=== PATIENT | female | born 1930 | race Native Hawaiian/Other Pacific Islander ===

== ENCOUNTER 2017-04-25 15:45 | Emergency (ER) | payer MEDICARE, MEDICAID ==
[~2017-04-25] VITALS: Ht 157.5 cm; Wt 70.5 kg
[2017-04-25] MEDS ORDERED: AMLO2.5T PO (15:59)
[2017-04-25] MEDS ORDERED: VALS40TA4 PO (15:59)
[2017-04-25] MEDS ORDERED: ATOR10TA84 PO (15:59)
[2017-04-25] MEDS ORDERED: RANI150T7 PO (15:59)
[2017-04-25] MEDS ORDERED: ISOS5TAB5 PO (15:59)
[2017-04-25] MEDS ORDERED: ASPI-556 PO (15:59)
[2017-04-25] MEDS ORDERED: RANI50VI4 IM (15:59)
[2017-04-25 20:50] VITALS: BP 145/77
[2017-04-25 21:54] LABS: ALBUMIN 3.2 g/dL (3.4-5.0); BASOPHILS % (AUTO) 0.5 % (0.0-2.0); BILIRUBIN,TOTAL 0.4 mg/dL (0.1-1.0); CALCIUM, TOTAL 9.2 mg/dL (8.8-10.5); CREATININE 1.15 mg/dL (0.60-1.30); EOSINOPHILS % (AUTO) 0.4 % (1.0-6.0); HEMATOCRIT 38.4 % (36-46); HEMOGLOBIN 12.7 g/dL (12.0-16.0); LYMPHOCYTES # (AUTO) 1.7 K/uL (1.0-4.8); LYMPHOCYTES % (AUTO) 46.5 % (22.0-44.0); MEAN CORPUSCULAR HEMOGLOBIN 29.8 pg (26.0-34.0); MEAN CORPUSCULAR HGB CONC 33.1 G/dL (31.0-37.0); MEAN CORPUSCULAR VOLUME 90 fL (80-100); MONOCYTES # (AUTO) 0.7 K/uL (0.1-1.0); NEUTROPHILS # (AUTO) 1.3 K/uL (1.8-7.7); NEUTROPHILS % (AUTO) 34.6 % (40.0-70.0); PLATELET COUNT (AUTO) 243 K/uL (150-450); RED BLOOD CELL COUNT(AUTO) 4.26 MIL/uL (4.00-5.20); RED CELL DISTRIBUTION WIDTH 13.2 % (11.5-14.5); TOTAL PROTEIN, SERUM 8.2 g/dL (6.4-8.2)
== END 2017-04-25 22:01 | disposition home or self-care (01) ==
LOC: EMS 15:46
DX: R07.2 Precordial pain (principal); R05 Cough; R11.10 Vomiting, unspecified; R09.81 Nasal congestion; K21.9 Gastro-esophageal reflux disease without esophagitis; E78.00 Pure hypercholesterolemia, unspecified; I10 Essential (primary) hypertension; Z79.82 Long term (current) use of aspirin
CPT/HCPCS: 71020; 93005; 99285

== ENCOUNTER → 2018-01-29 | Outpatient (CLI) | payer MEDICARE, OTHER ==
[~2018-01-29] MED LIST: AMLO2.5T3 PO; ASPI-556 PO; ATOR10TA84 PO; ISOS5TAB5 PO; RANI150T7 PO; RANI50VI4 IM; VALS40TA4 PO
[2018-01-29 12:54] LABS: BASOPHILS % (AUTO) 0.8 % (0.0-2.0); EOSINOPHILS % (AUTO) 3.4 % (1.0-6.0); HEMATOCRIT 36.8 % (36-46); HEMOGLOBIN 12.5 g/dL (12.0-16.0); LYMPHOCYTES # (AUTO) 2.5 K/uL (1.0-4.8); LYMPHOCYTES % (AUTO) 33.4 % (22.0-44.0); MEAN CORPUSCULAR HEMOGLOBIN 31.1 pg (26.0-34.0); MEAN CORPUSCULAR HGB CONC 33.9 G/dL (31.0-37.0); MEAN CORPUSCULAR VOLUME 92 fL (80-100); MONOCYTES # (AUTO) 0.8 K/uL (0.1-1.0); NEUTROPHILS # (AUTO) 3.8 K/uL (1.8-7.7); NEUTROPHILS % (AUTO) 51.4 % (40.0-70.0); PLATELET COUNT (AUTO) 269 K/uL (150-450); RED BLOOD CELL COUNT(AUTO) 4.01 MIL/uL (4.00-5.20); RED CELL DISTRIBUTION WIDTH 13.4 % (11.5-14.5)
[2018-01-29 13:20] LABS: ALBUMIN 3.6 g/dL (3.4-5.0); BILIRUBIN,TOTAL 0.6 mg/dL (0.1-1.0); CALCIUM, TOTAL 9.5 mg/dL (8.8-10.5); CHOL/HDL RATIO 1.9 (3.9-5.7); CREATININE 1.36 mg/dL (0.60-1.30); POTASSIUM 4.4 mmol/L (3.5-5.1); THYROID STIMULATING HORMONE 2.33 uIU/mL (0.36-3.74); TOTAL PROTEIN, SERUM 8.7 g/dL (6.4-8.2)
[2018-01-29 13:40] LABS: HEMOGLOBIN A1C 5.7 % (4.5-6.2)
== END | disposition home or self-care (01) ==
LOC: LABPV 10:55
PROVIDERS: ATTEND Internal Medicine Infectious Disease
DX: I25.10 Atherosclerotic heart disease of native coronary artery without angina pectoris (principal); I10 Essential (primary) hypertension; E78.2 Mixed hyperlipidemia; Z79.899 Other long term (current) drug therapy
CPT/HCPCS: 83036; 84443

== ENCOUNTER → 2018-04-06 | Outpatient (CLI) | payer MEDICARE, OTHER ==
[2018-04-06 15:11] LABS: EOSINOPHILS % (AUTO) 1.9 % (1.0-6.0); HEMATOCRIT 37.7 % (36-46); HEMOGLOBIN 12.7 g/dL (12.0-16.0); LYMPHOCYTES % (AUTO) 30.9 % (22.0-44.0); MEAN CORPUSCULAR HEMOGLOBIN 31.2 pg (26.0-34.0); MEAN CORPUSCULAR HGB CONC 33.6 G/dL (31.0-37.0); MEAN CORPUSCULAR VOLUME 93 fL (80-100); MONOCYTES # (AUTO) 0.7 K/uL (0.1-1.0); MONOCYTES % (AUTO) 10.1 % (2.0-9.0); NEUTROPHILS # (AUTO) 3.6 K/uL (1.8-7.7); NEUTROPHILS % (AUTO) 56.1 % (40.0-70.0); PLATELET COUNT (AUTO) 309 K/uL (150-450); RED BLOOD CELL COUNT(AUTO) 4.05 MIL/uL (4.00-5.20); RED CELL DISTRIBUTION WIDTH 13.5 % (11.5-14.5)
[2018-04-06 15:28] LABS: ALBUMIN 3.8 g/dL (3.4-5.0); BILIRUBIN,TOTAL 0.5 mg/dL (0.1-1.0); CALCIUM, TOTAL 8.9 mg/dL (8.8-10.5); CHOL/HDL RATIO 1.9 (3.9-5.7); CREATININE 1.37 mg/dL (0.60-1.30); POTASSIUM 4.2 mmol/L (3.5-5.1); THYROID STIMULATING HORMONE 4.48 uIU/mL (0.36-3.74); TOTAL PROTEIN, SERUM 8.7 g/dL (6.4-8.2)
== END | disposition home or self-care (01) ==
LOC: LABPV 13:13
PROVIDERS: ATTEND Internal Medicine Infectious Disease
DX: E78.2 Mixed hyperlipidemia (principal); I11.0 Hypertensive heart disease with heart failure; I50.21 Acute systolic (congestive) heart failure; R60.0 Localized edema; Z79.899 Other long term (current) drug therapy
CPT/HCPCS: 83036; 84443

== ENCOUNTER → 2018-06-30 | Outpatient (CLI) | payer MEDICARE, OTHER ==
[~2018-06-30] MED LIST changes: -AMLO2.5T3 PO; +AMLO2.5T4 PO
[2018-06-30 08:25] LABS: FREE THYROXINE INDEX 2.9 (1.4-4.5); THYROID STIMULATING HORMONE 5.66 uIU/mL (0.36-3.74)
== END | disposition home or self-care (01) ==
LOC: LABPV 06-29 10:48
PROVIDERS: ATTEND Internal Medicine Infectious Disease
DX: R73.09 Other abnormal glucose (principal); R79.89 Other specified abnormal findings of blood chemistry; I13.0 Hypertensive heart and chronic kidney disease with heart failure and stage 1 through stage 4 chronic kidney disease, or unspecified chronic kidney disease; N18.9 Chronic kidney disease, unspecified; I50.9 Heart failure, unspecified
CPT/HCPCS: 82951; 82952; 84436; 84443; 84479

== ENCOUNTER 2019-07-03 11:14 | Inpatient (IN) | payer MEDICARE, OTHER ==
[~2019-07-03] VITALS: Ht 157.5 cm; Wt 73.2 kg
[2019-07-03] MEDS ORDERED: HYDR25TA PO (11:58)
[2019-07-03] MEDS ORDERED: AMLO10TA7 PO (11:58)
[2019-07-03] MEDS ORDERED: ATOR40TA28 PO (11:58)
[2019-07-03] MEDS ORDERED: ISOS30TA6 PO (11:58)
[2019-07-03] MEDS: SODIUM CHLORIDE 0.9% 1,000 ML IV ONE (12:10)
[2019-07-03 12:12] LABS: GLUCOSE,POINT OF CARE 167 MG/DL (70-110)
[2019-07-03 12:22] LABS: BASOPHILS % (AUTO) 0.4 % (0.0-2.0); EOSINOPHILS % (AUTO) 0.2 % (1.0-6.0); HEMATOCRIT 39.1 % (36-46); LYMPHOCYTES # (AUTO) 1.1 K/uL (1.0-4.8); LYMPHOCYTES % (AUTO) 19.1 % (22.0-44.0); MEAN CORPUSCULAR HEMOGLOBIN 30.4 pg (26.0-34.0); MEAN CORPUSCULAR HGB CONC 35.7 G/dL (31.0-37.0); MEAN CORPUSCULAR VOLUME 85 fL (80-100); MONOCYTES # (AUTO) 0.5 K/uL (0.1-1.0); MONOCYTES % (AUTO) 9.1 % (2.0-9.0); NEUTROPHILS # (AUTO) 4.1 K/uL (1.8-7.7); NEUTROPHILS % (AUTO) 71.2 % (40.0-70.0); PLATELET COUNT (AUTO) 346 K/uL (150-450); RED BLOOD CELL COUNT(AUTO) 4.59 MIL/uL (4.00-5.20)
[2019-07-03 12:39] LABS: B-TYPE NATRIURETIC PEPTIDE 166 pg/mL (0-100)
[2019-07-03 12:45] LABS: LACTIC ACID 1.2 mmol/L (0.4-2.0)
[2019-07-03 12:54] LABS: ALANINE AMINOTRANSFERASE 38 U/L (12-78); ALBUMIN 3.9 g/dL (3.4-5.0); ALKALINE PHOSPHATASE 69 U/L (46-116); ANION GAP 2 mmol/L (8-16); ASPARTATE AMINOTRANSFERASE 41 U/L (15-37); BILIRUBIN,TOTAL 0.9 mg/dL (0.1-1.0); CALCIUM, TOTAL 9.6 mg/dL (8.8-10.5); CARBON DIOXIDE 36 mmol/L (22-29); CHLORIDE 72 mmol/L (98-107); CREATINE KINASE, TOTAL ONLY 370 U/L (26-192); GLOMERULAR FILTR. RATE CALC 59 mL/min (>60); GLUCOSE,RANDOM 137 mg/dL (70-110); TOTAL PROTEIN, SERUM 9.2 g/dL (6.4-8.2); UREA NITROGEN, BLOOD 12 mg/dL (7-18)
[2019-07-03 12:57] LABS: POTASSIUM 2.2 mmol/L (3.5-5.1); SODIUM SERUM 110 mmol/L (136-145)
[2019-07-03] MEDS ORDERED: MAGNESIUM SULFATE 1 GM in DEXTROSE 5%-WATER 50 ML IV ONE (13:00)
[2019-07-03 13:03] LABS: INFLUENZA TYPE A NEGATIVE FOR TYPE A (NEGATIVE); INFLUENZA TYPE B NEGATIVE FOR TYPE B (NEGATIVE)
[2019-07-03 13:04] LABS: SALICYLATE < 0.2 mg/dL (2.8-20.0)
[2019-07-03] MEDS: POTASSIUM CHL 10 MEQ/WATER 50 ML IV PRN ×5 (13:15→21:40)
[2019-07-03] MEDS ORDERED: SODIUM CHLORIDE 0.9% 500 ML IV ONE (13:16)
[2019-07-03 13:18] LABS: ACETAMINOPHEN < 2 mcg/mL (10-30); FREE T4 (FREE THYROXINE) 1.61 ng/dL (0.76-1.46); THYROID STIMULATING HORMONE 3.38 uIU/mL (0.36-3.74)
[2019-07-03] MEDS: POTASSIUM CHLORIDE 20 MEQ ER TABLET PO PRN ×2 (13:30→18:09)
[2019-07-03 13:34] LABS: OSMOLALITY 234 mOS/kg (270-310)
[2019-07-03 13:47] LABS: OSMOLALITY,URINE 361 mOS/kg (50-1200)
[2019-07-03 13:48] LABS: SODIUM,URINE RANDOM 92 mmol/l (20-110)
[2019-07-03 14:03] LABS: ANION GAP 4 mmol/L (8-16); CALCIUM, TOTAL 9.2 mg/dL (8.8-10.5); CARBON DIOXIDE 29 mmol/L (22-29); CHLORIDE 71 mmol/L (98-107); CREATININE 0.58 mg/dL (0.60-1.30); GLUCOSE,RANDOM 139 mg/dL (70-110); POTASSIUM 3.4 mmol/L (3.5-5.1); UREA NITROGEN, BLOOD 10 mg/dL (7-18)
[2019-07-03 14:11] LABS: GLOMERULAR FILTR. RATE CALC > 60 mL/min (>60); SODIUM SERUM 104 mmol/L (136-145)
[2019-07-03] MEDS ORDERED: SODIUM CHLORIDE 3% 500 ML IV ONE (14:15)
[2019-07-03] MEDS ORDERED: ONDANSETRON HCL 4 MG/2 ML VIAL IVP PRN ×2 (14:15→17:45)
[2019-07-03] MEDS ORDERED: ACETAMINOPHEN 325 MG TABLET PO PRN ×2 (14:15→17:45)
[2019-07-03] MEDS ORDERED: 0.9% SODIUM CHLORIDE 10 ML SYRINGE IVP PRN (14:15)
[2019-07-03 14:22] LABS: APPEARANCE,URINE CLOUDY (CLEAR); BILIRUBIN,URINE NEGATIVE (NEGATIVE); GLUCOSE, URINE (UA) NEGATIVE (NEGATIVE); KETONES,URINE NEGATIVE (NEGATIVE); LEUKOCYTE ESTERASE ,URINE NEGATIVE (NEGATIVE); NITRATE,URINE NEGATIVE (NEGATIVE); OCCULT BLOOD,URINE SMALL (NEGATIVE); PROTEIN,URINE SEE CONFIRM (NEGATIVE); UROBILINOGEN,URINE 0.2 mg/dL (<=1.0)
[2019-07-03 14:44] LABS: SULFOSALICYLIC ACID,URINE 2+ (Negative)
[2019-07-03 14:45] LABS: BACTERIA,URINE Many /HPF (None Seen); RBC,URINE 0-2 /HPF (0-2); SQUAMOUS EPITHELIAL CELL,UR Few /LPF (None Seen); WBC,URINE 0-2 /HPF (0-5)
[2019-07-03] MEDS ORDERED: PANTOPRAZOLE SODIUM 40 MG/VIAL IVP ONE (15:45)
[2019-07-03] MEDS ORDERED: ALPRAZolam 0.25 MG TABLET PO ONE (15:45)
[2019-07-03 17:24] LABS: POTASSIUM 2.3 mmol/L (3.5-5.1)
[2019-07-03] MEDS ORDERED: POTASSIUM CHL 10 MEQ/WATER 50 ML IV PRN (17:45)
[2019-07-03] MEDS ORDERED: BISACODYL 10 MG RECTAL RECTAL SUPPOSITORY PR PRN (17:45)
[2019-07-03] MEDS ORDERED: MORPHINE SULFATE 2 MG/ML SYRINGE IVP PRN (17:45)
[2019-07-03] MEDS ORDERED: HYDROCODONE/ACETAMINOPHEN 5-325 MG TABLET PO PRN (17:45)
[2019-07-03] MEDS ORDERED: HydrALAZINE HCL 10 MG TABLET PO PRN (17:45)
[2019-07-03] MEDS ORDERED: MAGNESIUM HYDROXIDE SUSPENSION 30 ML UDCUP PO PRN (17:45)
[2019-07-03] MEDS ORDERED: ZOLPIDEM TARTRATE 5 MG TABLET PO PRN (17:45)
[2019-07-03 19:49] LABS: POTASSIUM 3.3 mmol/L (3.5-5.1)
[2019-07-03] MEDS: DOCUSATE SODIUM 100 MG CAPSULE PO SCH (20:27)
[2019-07-03 21:30] LABS: POTASSIUM 4.3 mmol/L (3.5-5.1)
[2019-07-03 23:27] LABS: POTASSIUM 4.3 mmol/L (3.5-5.1)
[2019-07-04] VITALS: BP_SYST 118; BP_DIAS 40; BP_DIAS 44
[2019-07-04] MEDS: HEPARIN SODIUM,PORCINE 5,000 UNITS/ML VIAL SQ SCH ×4 (00:19→23:40)
[2019-07-04 01:53] LABS: POTASSIUM 4.1 mmol/L (3.5-5.1)
[2019-07-04] MEDS ORDERED: PNEUMOCOCCAL VACCINE POLYVALENT 0.5 ML VIAL [PPSV23] IM ONE (02:00)
[2019-07-04] MEDS ORDERED: INFLUENZA VIRUS VACCINE QVS 2019-20 (3YR+)/PF 60 MCG/0.5 ML SYRINGE IM ONE (02:00)
[2019-07-04] MEDS: SODIUM CHLORIDE 3% 500 ML IV SCH ×2 (03:48→16:36)
[2019-07-04 04:00] VITALS: BP 108/41
[2019-07-04 05:46] LABS: POTASSIUM 3.8 mmol/L (3.5-5.1)
[2019-07-04 08:00] VITALS: BP 128/40
[2019-07-04] MEDS ORDERED: ATORVASTATIN CALCIUM 40 MG TABLET PO SCH (09:00)
[2019-07-04 09:06] LABS: BASOPHILS % (AUTO) 0.7 % (0.0-2.0); EOSINOPHILS % (AUTO) 0.7 % (1.0-6.0); HEMOGLOBIN 12.5 g/dL (12.0-16.0); LYMPHOCYTES # (AUTO) 1.4 K/uL (1.0-4.8); LYMPHOCYTES % (AUTO) 23.6 % (22.0-44.0); MEAN CORPUSCULAR HEMOGLOBIN 30.7 pg (26.0-34.0); MEAN CORPUSCULAR HGB CONC 35.6 G/dL (31.0-37.0); MEAN CORPUSCULAR VOLUME 86 fL (80-100); MONOCYTES # (AUTO) 0.8 K/uL (0.1-1.0); NEUTROPHILS # (AUTO) 3.5 K/uL (1.8-7.7); PLATELET COUNT (AUTO) 314 K/uL (150-450); RED BLOOD CELL COUNT(AUTO) 4.06 MIL/uL (4.00-5.20); RED CELL DISTRIBUTION WIDTH 13.4 % (11.5-14.5)
[2019-07-04 09:32] LABS: ALANINE AMINOTRANSFERASE 32 U/L (12-78); ALBUMIN 3.1 g/dL (3.4-5.0); ALKALINE PHOSPHATASE 53 U/L (46-116); ANION GAP 3 mmol/L (8-16); ASPARTATE AMINOTRANSFERASE 34 U/L (15-37); BILIRUBIN,TOTAL 0.9 mg/dL (0.1-1.0); CALCIUM, TOTAL 9.1 mg/dL (8.8-10.5); CARBON DIOXIDE 29 mmol/L (22-29); CHLORIDE 88 mmol/L (98-107); CREATININE 0.78 mg/dL (0.60-1.30); GLUCOSE,RANDOM 97 mg/dL (70-110); POTASSIUM 3.5 mmol/L (3.5-5.1); TOTAL PROTEIN, SERUM 7.4 g/dL (6.4-8.2); UREA NITROGEN, BLOOD 9 mg/dL (7-18)
[2019-07-04 09:44] LABS: GLOMERULAR FILTR. RATE CALC > 60 mL/min (>60); SODIUM SERUM 120 mmol/L (136-145)
[2019-07-04] MEDS: ISOSORBIDE MONONITRATE 30 MG ER TABLET PO SCH (09:44)
[2019-07-04] MEDS: DOCUSATE SODIUM 100 MG CAPSULE PO SCH ×2 (09:44→21:00)
[2019-07-04] MEDS: ASPIRIN 81 MG EC TABLET PO SCH (09:44)
[2019-07-04] MEDS: PANTOPRAZOLE SODIUM 40 MG DR TABLET PO SCH (09:44)
[2019-07-04] MEDS ORDERED: POTASSIUM CHLORIDE 20 MEQ ER TABLET PO ONE (11:30)
[2019-07-04 12:00] VITALS: BP 127/40
[2019-07-04 13:00] LABS: PHOSPHORUS 1.8 mg/dL (2.5-4.9); POTASSIUM 3.5 mmol/L (3.5-5.1)
[2019-07-04 15:43] LABS: POTASSIUM 3.8 mmol/L (3.5-5.1)
[2019-07-04 16:00] VITALS: BP 109/42
[2019-07-04] MEDS ORDERED: *NON-FORMULARY MED [ENTER DRUG, DOSE, FREQ IN COMMENTS] CLINICAL ONE (16:15)
[2019-07-04] MEDS ORDERED: WATER IV ONE (16:30)
[2019-07-04] MEDS ORDERED: DEXTROSE 5% IV ONE (16:30)
[2019-07-04] MEDS ORDERED: SODIUM PHOS M BASIC D BASIC IV ONE (16:30)
[2019-07-04 18:30] LABS: POTASSIUM 3.6 mmol/L (3.5-5.1)
[2019-07-04 18:33] LABS: GLUCOSE,POINT OF CARE 95 MG/DL (70-110)
[2019-07-04 20:00] VITALS: BP 118/46
[2019-07-04 20:28] LABS: POTASSIUM 3.3 mmol/L (3.5-5.1)
[2019-07-04] MEDS: POTASSIUM CHLORIDE 20 MEQ ER TABLET PO PRN (22:00)
[2019-07-05] VITALS: BP 118/45
[2019-07-05 00:45] LABS: FREE T4 (FREE THYROXINE) 1.58 ng/dL (0.76-1.46); THYROID STIMULATING HORMONE 5.36 uIU/mL (0.36-3.74)
[2019-07-05] MEDS ORDERED: DEXTROSE 5%-WATER 500 ML IV SCH ×2 (01:00→01:10)
[2019-07-05 04:00] VITALS: BP 114/40
[2019-07-05 06:04] LABS: ANION GAP 3 mmol/L (8-16); CALCIUM, TOTAL 9.1 mg/dL (8.8-10.5); CARBON DIOXIDE 28 mmol/L (22-29); CHLORIDE 92 mmol/L (98-107); CREATININE 0.77 mg/dL (0.60-1.30); GLOMERULAR FILTR. RATE CALC > 60 mL/min (>60); GLUCOSE,RANDOM 111 mg/dL (70-110); PHOSPHORUS 2.1 mg/dL (2.5-4.9); UREA NITROGEN, BLOOD 7 mg/dL (7-18)
[2019-07-05 06:05] LABS: SODIUM SERUM 123 mmol/L (136-145)
[2019-07-05] MEDS ORDERED: MAGNESIUM SULFATE 1 GM in DEXTROSE 5%-WATER 50 ML IV ONE (07:00)
[2019-07-05] MEDS ORDERED: POTASSIUM PHOS/SODIUM PHOS MIXTURE 1 POWDER PACKET PO ONE (07:30)
[2019-07-05 08:00] VITALS: BP 132/42
[2019-07-05 09:10] LABS: POTASSIUM 3.9 mmol/L (3.5-5.1)
[2019-07-05] MEDS ORDERED: SODIUM CHLORIDE 3% 500 ML IV ONE (09:30)
[2019-07-05 09:40] LABS: MAGNESIUM 1.8 mg/dL (1.80-2.40); PHOSPHORUS 2.2 mg/dL (2.5-4.9)
[2019-07-05] MEDS: ISOSORBIDE MONONITRATE 30 MG ER TABLET PO SCH (10:19)
[2019-07-05] MEDS: CefTRIAXone 1 GM/DEXTROSE 50 ML IV SCH (10:19)
[2019-07-05] MEDS: HEPARIN SODIUM,PORCINE 5,000 UNITS/ML VIAL SQ SCH ×2 (10:19→16:00)
[2019-07-05] MEDS: MULTIVITAMINS WITH MINERALS, THERAPEUTIC TABLET PO SCH (10:20)
[2019-07-05] MEDS: ASPIRIN 81 MG EC TABLET PO SCH (10:20)
[2019-07-05] MEDS: DOCUSATE SODIUM 100 MG CAPSULE PO SCH ×2 (10:20→20:39)
[2019-07-05] MEDS: PANTOPRAZOLE SODIUM 40 MG DR TABLET PO SCH (10:20)
[2019-07-05 12:00] VITALS: BP 125/45
[2019-07-05 12:20] LABS: POTASSIUM 3.8 mmol/L (3.5-5.1)
[2019-07-05 16:00] VITALS: BP 136/41
[2019-07-05 16:05] LABS: POTASSIUM 3.7 mmol/L (3.5-5.1)
[2019-07-05 20:00] VITALS: BP_SYST 128; BP_SYST 141; BP_DIAS 42; BP_DIAS 57
[2019-07-05] MEDS: ATORVASTATIN CALCIUM 40 MG TABLET PO SCH (20:39)
[2019-07-05 20:55] LABS: POTASSIUM 3.5 mmol/L (3.5-5.1)
[2019-07-06] VITALS: BP 128/42
[2019-07-06] MEDS: HEPARIN SODIUM,PORCINE 5,000 UNITS/ML VIAL SQ SCH ×4 (00:02→23:59)
[2019-07-06 04:00] VITALS: BP 144/58
[2019-07-06 05:23] LABS: BAND NEUTROPHILS % (MANUAL) 0 % (0-5)
[2019-07-06 05:26] LABS: HEMOGLOBIN 13.1 g/dL (12.0-16.0); MEAN CORPUSCULAR HEMOGLOBIN 30.8 pg (26.0-34.0); MEAN CORPUSCULAR HGB CONC 34.6 G/dL (31.0-37.0); MEAN CORPUSCULAR VOLUME 89 fL (80-100); PLATELET COUNT (AUTO) 322 K/uL (150-450); RED BLOOD CELL COUNT(AUTO) 4.26 MIL/uL (4.00-5.20); RED CELL DISTRIBUTION WIDTH 13.5 % (11.5-14.5)
[2019-07-06 05:35] LABS: ANION GAP 7 mmol/L (8-16); CALCIUM, TOTAL 9.5 mg/dL (8.8-10.5); CARBON DIOXIDE 26 mmol/L (22-29); CHLORIDE 94 mmol/L (98-107); CREATININE 0.82 mg/dL (0.60-1.30); GLOMERULAR FILTR. RATE CALC > 60 mL/min (>60); GLUCOSE,RANDOM 111 mg/dL (70-110); POTASSIUM 3.8 mmol/L (3.5-5.1); SODIUM SERUM 127 mmol/L (136-145); UREA NITROGEN, BLOOD 9 mg/dL (7-18)
[2019-07-06 05:48] LABS: EOSINOPHILS % (MANUAL) 2 % (1-6); LYMPHOCYTES % (MANUAL) 11 % (22-44); MONOCYTES % (MANUAL) 8 % (2-9); SEGMENTED NEUTROPHILS % 79 % (40-70)
[2019-07-06] MEDS: DOCUSATE SODIUM 100 MG CAPSULE PO SCH ×2 (09:00→21:09)
[2019-07-06] MEDS: PANTOPRAZOLE SODIUM 40 MG DR TABLET PO SCH (09:49)
[2019-07-06] MEDS: MULTIVITAMINS WITH MINERALS, THERAPEUTIC TABLET PO SCH (09:49)
[2019-07-06] MEDS: ASPIRIN 81 MG EC TABLET PO SCH (09:49)
[2019-07-06] MEDS: ISOSORBIDE MONONITRATE 30 MG ER TABLET PO SCH (10:08)
[2019-07-06] MEDS: CefTRIAXone 1 GM/DEXTROSE 50 ML IV SCH (10:08)
[2019-07-06 13:01] VITALS: BP 116/62
[2019-07-06 15:17] VITALS: BP 112/56
[2019-07-06 15:34] LABS: ANION GAP 10 mmol/L (8-16); CALCIUM, TOTAL 9.7 mg/dL (8.8-10.5); CARBON DIOXIDE 26 mmol/L (22-29); CHLORIDE 94 mmol/L (98-107); CREATININE 0.81 mg/dL (0.60-1.30); GLUCOSE,RANDOM 126 mg/dL (70-110); PHOSPHORUS 2.4 mg/dL (2.5-4.9); POTASSIUM 3.4 mmol/L (3.5-5.1); SODIUM SERUM 130 mmol/L (136-145); UREA NITROGEN, BLOOD 13 mg/dL (7-18)
[2019-07-06 15:35] LABS: GLOMERULAR FILTR. RATE CALC > 60 mL/min (>60)
[2019-07-06] MEDS: SODIUM CHLORIDE 1 GM TABLET PO SCH ×2 (16:25→21:09)
[2019-07-06 17:30] VITALS: BP 112/56
[2019-07-06 20:38] VITALS: BP 128/46
[2019-07-06] MEDS: ATORVASTATIN CALCIUM 40 MG TABLET PO SCH (21:09)
[2019-07-07 00:07] VITALS: BP 111/49
[2019-07-07] MEDS: POTASSIUM CHLORIDE 20 MEQ ER TABLET PO PRN (04:37)
[2019-07-07 04:56] VITALS: BP 120/53
[2019-07-07 07:29] VITALS: BP 148/56
[2019-07-07] MEDS: MULTIVITAMINS WITH MINERALS, THERAPEUTIC TABLET PO SCH (09:38)
[2019-07-07] MEDS: ISOSORBIDE MONONITRATE 30 MG ER TABLET PO SCH (09:38)
[2019-07-07] MEDS: DOCUSATE SODIUM 100 MG CAPSULE PO SCH ×2 (09:38→20:41)
[2019-07-07] MEDS: PANTOPRAZOLE SODIUM 40 MG DR TABLET PO SCH (09:38)
[2019-07-07] MEDS: HEPARIN SODIUM,PORCINE 5,000 UNITS/ML VIAL SQ SCH ×2 (09:38→16:00)
[2019-07-07] MEDS: ASPIRIN 81 MG EC TABLET PO SCH (09:38)
[2019-07-07 09:43] LABS: ANION GAP 7 mmol/L (8-16); CALCIUM, TOTAL 9.7 mg/dL (8.8-10.5); CARBON DIOXIDE 27 mmol/L (22-29); CHLORIDE 96 mmol/L (98-107); CREATININE 0.82 mg/dL (0.60-1.30); GLUCOSE,RANDOM 174 mg/dL (70-110); POTASSIUM 4.1 mmol/L (3.5-5.1); SODIUM SERUM 130 mmol/L (136-145); UREA NITROGEN, BLOOD 13 mg/dL (7-18)
[2019-07-07 09:46] LABS: GLOMERULAR FILTR. RATE CALC > 60 mL/min (>60)
[2019-07-07] MEDS: SODIUM CHLORIDE 1 GM TABLET PO SCH ×2 (10:07→18:23)
[2019-07-07] MEDS ORDERED: ENALAPRIL MALEATE 5 MG TABLET PO SCH (11:15)
[2019-07-07 11:17] VITALS: BP 112/63
[2019-07-07] MEDS ORDERED: SODIUM CHLORIDE 0.9% 250 ML IV ONE (12:08)
[2019-07-07] MEDS: CefTRIAXone 1 GM/DEXTROSE 50 ML IV SCH (12:12)
[2019-07-07 15:28] VITALS: BP 103/54
[2019-07-07 15:29] LABS: CREATININE 0.95 mg/dL (0.60-1.30); POTASSIUM 4.3 mmol/L (3.5-5.1)
[2019-07-07] MEDS ORDERED: ASPI-557 PO (18:41)
[2019-07-07] MEDS ORDERED: ENAL2.5T PO (18:57)
[2019-07-07] MEDS ORDERED: CIPR-279 PO (18:59)
[2019-07-07] MEDS: ATORVASTATIN CALCIUM 40 MG TABLET PO SCH (20:41)
== END 2019-07-07 22:15 | disposition home or self-care (01) | DRG 640 ==
LOC: EMS 11:15 → ICUN 22:36 → 5N 07-06 12:20
PROVIDERS: ADMIT Internal Medicine; ATTEND Internal Medicine
DX: E87.1 Hypo-osmolality and hyponatremia (principal); G93.41 Metabolic encephalopathy; I10 Essential (primary) hypertension; E87.6 Hypokalemia; E78.5 Hyperlipidemia, unspecified; I25.10 Atherosclerotic heart disease of native coronary artery without angina pectoris; K21.9 Gastro-esophageal reflux disease without esophagitis; K29.70 Gastritis, unspecified, without bleeding; D64.9 Anemia, unspecified; I48.0 Paroxysmal atrial fibrillation; E78.00 Pure hypercholesterolemia, unspecified; E83.42 Hypomagnesemia; E86.0 Dehydration; Z79.01 Long term (current) use of anticoagulants; Z79.899 Other long term (current) drug therapy; Z95.5 Presence of coronary angioplasty implant and graft; Z91.19 Patient's noncompliance with other medical treatment and regimen
CPT/HCPCS: 70450; 83605; 83735; 83930; 83935; 84100; 84132; 84295; 84300; 84439; 84443; 85007; 87040; 87081; 87086; 87804; 93005; 99291; C9113; G0378; G0480; G0481; J0696; J1644; J2405; J3475; J3480; J3490; J7030; J7040; J7050; J7060